=== PATIENT | female | born 2005 | race Asian ===

== ENCOUNTER 2025-01-02 17:12 | Emergency (ER) | payer OTHER, SELFPAY ==
[2025-01-02 17:13] VITALS: BP 104/73; PULSE 66; RESP 18; TEMP 36.5; O2SAT 100; BMI 22.7
--- NOTE | 2025-01-02 19:53 | EX.ED.DYSGE1 ---
HPI History of Present Illness Chief Complaint: Bite Detail of Chief Complaint: Bat bite near her right breast and left upper back Informant: patient Onset/Context/Timing Onset: Today and Yesterday Context: - (Not applicable) Timing: - (Not applicable) Quality: Awoke with bat outside of room and has bite medial upper quadrant Location: Right breast and left shoulder Current Severity: Mild Maximum Severity: Mild Worsened by: Not applicable Relieved by: Not applicable Associated Symptoms Associated Symptoms: None Narrative Narrative: Patient is a 19-year-old who awoke with a bat inside her room 2 days ago and today. She has a bite mich medial upper quadrant of right breast that occurred 2 days ago and has a bite mich left shoulder that occurred today she has no other symptoms. She is a college [employer] student. Apparently, the school is aware that there is bats in the dorm. Prior similar symptoms: No Recent Illness/Hospitalization: No PFSH PFSH Allergy/AdvReac Type Severity Reaction Status Date / Time No Known Allergies Allergy Verified 01/02/25 17:13 Social History (Updated 01/02/25 @ 19:[address] Andres Ibanez MD) household members: other Smoking Status: Never smoker ROS ROS ED Constitutional Constitutional ED: Denies chills, fever(s), subjective, sweats or weight loss Eyes Eyes: Denies blurry vision or change in vision ENT ENT ED: Denies sore throat Musculoskeletal Musculoskeletal: Denies arthralgias or myalgias Integumentary Denies rash Neurologic Neurologic: Denies paresthesias Hematologic/Lymphatic Hematologic/Lymphatic: Reports systems reviewed and no addt'l complaints, except as documented EXAM Physical Exam Const Vital Signs: 01/02/25 17:13 Temperature 97.7 F L Temperature Source Temporal Pulse Rate 66 Respiratory Rate 18 Blood Pressure 104/73 Blood Pressure Mean 83 Pulse Ox 100 Oxygen Delivery Method Room Air Positive well nourished and well developed General Appearance ED: well developed and NAD HEENT Reports moist mucous membranes HEENT Narrative: Head is atraumatic normocephalic. Eyes PERRL and EOMs intact bilaterally Neck no lymphadenopathy, supple and no JVD Chest Wall palpation of chest normal; Negative for inspection of chest normal Chest Narrative: Bite mich tail of the upper medial quadrant of the right breast and posterior upper left back Resp normal respiratory effort and clear to auscultation bilaterally Cardio regular rate and regular rhythm Extremity normal to inspection Neuro oriented x3 and CN's II-XII intact bilaterally Sensorium / Orientation: alert Psych mental status grossly normal Skin Skin Narrative: What appears to be a bat bite anterior and posterior chest wall as previously described MDM MDM MDM Narrative Medical decision making narrative: Patient will require rabies immunoglobulin and vaccine. Patient is present in the connell need to be moved to a room for me to inject the right breast and back. Procedures Other Procedures Procedure(s): Yashira Vargas of rabies immunoglobulin one half right breast the other half left shoulder region. Discharge Plan Triage Chief Complaint: Bite ED Provider: Andres Ibanez Dx/Rx/DC Orders Clinical Impression: Bat bite wound Instructions: Rabies Vaccine, ED Animal Bite (General) Primary Care Provider: Bryon Baez Referrals: Bryon Baez MD [Primary Care Provider] - As Needed Print Language: Luxembourgish Disposition Disposition: Home, Self Care
[2025-01-02] MEDS: Rabies Immune Globulin/PF 300 UNIT/ML, 5 ML VIAL 1320 UNIT IM (20:17)
[2025-01-02 20:40] VITALS: BP 100/70; PULSE 61; RESP 15; TEMP 36.5; O2SAT 100
== END 2025-01-02 20:41 | disposition home or self-care (01) ==
PROVIDERS: Emergency Provider Emergency Medicine; PCP Family Medicine; Visit Provider Emergency Medicine
DX: S21.252A Open bite of left back wall of thorax without penetration into thoracic cavity, initial encounter (principal); S21.051A Open bite of right breast, initial encounter; Z23 Encounter for immunization; X58.XXXA Exposure to other specified factors, initial encounter
CPT/HCPCS: 90675; 96361; 96372; 96374; 99282; 90375

== ENCOUNTER 2025-01-05 17:21 | Outpatient (CLI) | payer OTHER, SELFPAY ==
[2025-01-05 17:21] VITALS: BP 122/70; PULSE 83; RESP 16; TEMP 37; O2SAT 100; BMI 23.5
== END 2025-01-05 18:14 | disposition home or self-care (01) ==
PROVIDERS: PCP Family Medicine; Visit Provider Emergency Medicine
DX: Z23 Encounter for immunization (principal)
CPT/HCPCS: 90675; 96372

== ENCOUNTER 2025-01-09 12:16 | Outpatient (CLI) | payer OTHER, SELFPAY ==
[2025-01-09 12:17] VITALS: BP 104/69; PULSE 81; RESP 14; TEMP 36.6; O2SAT 98; BMI 23.3
[2025-01-09 12:43] VITALS: BP 101/78; PULSE 64; RESP 14; TEMP 36.6; O2SAT 100
--- OUTSIDE RECORDS SUMMARY | 2025-01-09 13:18 | XMS RPT_ITS | CCD ---
Author Organization [facility]ini[facility] Care Team Providers Care School Librarian Name Role Phone Shamar AVENDAÑO, Dr. Campos Emergency Provider Sasha AVENDAÑO, Dr. Slater Primary Care Provider Shamar AVENDAÑO, Dr. Campos Attending Provider Bryon Baez Primary Care Unavailable Andres Ibanez Attending Unavailable Bryon Baez Primary Care Unavailable Andres Ibanez Attending Unavailable Problems Problem Classification Problem Date Documented Da te Episodic/Chronic E Codes: Natural/environment (2 sources) Mammal bite wound; Translations: [Bitten by other mammals, initial encounter] 01-02-2025 Episodic Open wounds of head; neck; and trunk (1 source) Open bite of left back wall of thorax without penetration into thoracic cavity, initial encounter; Translations: [Open bite of left back wall of thorax without penetration into thoracic cavity, initial encounter] Onset: 01-05-2025 Episodic Results Test Name Value Interpretation Reference Range Facil ity Emergency Department Summary on 01-02-2025 Emergency Department Summary [facility] Medical Records Department [address] [place] [address] Emergency Department Summary 01/02/25 MR#: [id number] Acct: [id number] Name: SVETA RECIO Rep #: [id number] : 2005 19 From: Andres Ibanez MD PCP: Dr. Bryon Baez MD Status:REG ER Location: ED HPI History of Present Illness Chief Complaint: Bite Detail of Chief Complaint: Bat bite near her right breast and left upper back Informant: patient Onset/Context/Timing Onset: Today and Yesterday Context: - (Not applicable) Timing: - (Not applicable) Quality: Awoke with bat outside of room and has bite medial upper quadrant Location: Right breast and left shoulder Current Severity: Mild Maximum Severity: Mild Worsened by: Not applicable Relieved by: Not applicable Associated Symptoms Associated Symptoms: None Narrative Narrative: Patient is a 19-year-old who awoke with a bat inside her room 2 days ago and today. She has a bite mich medial upper quadrant of right breast that occurred 2 days ago and has a bite mich left shoulder that occurred today she has no other symptoms. She is a college [employer] student. Apparently, the school is aware that there is bats in the dorm. Prior similar symptoms: No Recent Illness/Hospitalizati on: No PFSH PFSH Allergy/AdvReac Type Severity Reaction Status Date / Time No Known Allergies Allergy Verified 01/02/25 17:13 Social History (Updated 01/02/25 @ 19:[address] Andres Ibanez MD) household members: other Smoking Status: Never smoker ROS ROS ED Constitutional Constitutional ED: Denies chills, fever(s), subjective, sweats or weight loss Eyes Eyes: Denies blurry vision or change in vision ENT ENT ED: Denies sore throat Musculoskeletal Musculoskeletal: Denies arthralgias or myalgias Integumentary Denies rash Neurologic Neurologic: Denies paresthesias Hematologic/Lymphatic Hematologic/Lymphatic : Reports systems reviewed and no addt'l complaints, except as documented EXAM Physical Exam Const Vital Signs: 01/02/25 17:13 Temperature 97.7 F L Temperature Source Temporal Pulse Rate 66 Respiratory Rate 18 Blood Pressure 104/73 Blood Pressure Mean 83 Pulse Ox 100 Oxygen Delivery Method Room Air Positive well nourished and well developed General Appearance ED: well developed and NAD HEENT Reports moist mucous membranes HEENT Narrative: Head is atraumatic normocephalic. Eyes PERRL and EOMs intact bilaterally Neck no lymphadenopathy, supple and no JVD Chest Wall palpation of chest normal; Negative for inspection of chest normal Chest Narrative: Bite mich tail of the upper medial quadrant of the right breast and posterior upper left back Resp normal respiratory effort and clear to auscultation bilaterally Cardio regular rate and regular rhythm Extremity normal to inspection Neuro oriented x3 and CN's II-XII intact bilaterally Sensorium / Orientation: alert Psych mental status grossly normal Skin Skin Narrative: What appears to be a bat bite anterior and posterior chest wall as previously described MDM MDM MDM Narrative Medical decision making narrative: Patient will require rabies immunoglobulin and vaccine. Patient is present in the connell need to be moved to a room for me to inject the right breast and back. Procedures Other Procedures Procedure(s): Yashira Sam of rabies immunoglobulin one half right breast the other half left shoulder region. Discharge Plan Triage Chief Complaint: Bite ED Provider: Andres Ibanez Dx/Rx/DC Orders Clinical Impression: Bat bite wound Instructions: Rabies Vaccine, ED Animal Bite (General) Primary Care Provider: Bryon Baez Referrals: Bryon Baez MD [Primary Care Provider] - As Needed Print Language: Sammarinese Disposition Disposition: Home, Self Care What to do if you have Problems For any increased pain, shortness of breath, bleeding, nausea or vomiting, chest pain, or any unexpected problems, contact your Primary Care Provider. Call [facility] ([phone]) or report to the closest Emergency Room. Call 911 if necessary. 01/02/252012 Cosigner Signature (if applicable): CC: Dr. Bryon Baez MD Signed Normal [facility] Vital Signs Date Time Vital Sign Value Performing Clinician Faci lity 01-05-2025 17:47-0400 Body weight 68.[address] Andres Ibanez MD Work Phone: [facility] 01-05-2025 17:21-0400 Body height 170.[address] Andres Ibanez MD Work Phone: [facility] 01-05-2025 17:21-0400 Body mass index (BMI) [Ratio] 23.5 kg/m2 Dr. Andres Ibanez MD Work Phone: [facility] 01-05-2025 17:21-0400 Body temperature 98.6 [degF] Dr. Andres Ibanez MD Work Phone: [facility] 01-05-2025 17:21-0400 Diastolic blood pressure 70 mm[Hg] Dr. Andres Ibanez MD Work Phone: [facility] 01-05-2025 17:21-0400 Heart rate 83 /min Dr. Andres Ibanez MD Work Phone: [facility] 01-05-2025 17:21-0400 Respiratory rate 16 /min Dr. Andres Ibanez MD Work Phone: 2(397)594-603245 [place] [address] 01-05-2025 17:21-0400 SaO2% (BldA) [Mass fraction] 100 % Dr. Andres Ibanez MD Work Phone: 9(551)884-969345 [place] [address] 01-05-2025 17:21-0400 Systolic blood pressure 122 mm[Hg] Dr. Andres Ibanez MD Work Phone: 6(942)527-881040 [place] [address] 01-02-2025 20:40-0400 Body temperature 97.7 [degF] Dr. Andres Ibanez MD Work Phone: 5(969)428-902740 [place] [address] 01-02-2025 20:40-0400 Diastolic blood pressure 70 mm[Hg] Dr. Andres Ibanez MD Work Phone: 9(808)148-593940 [place] [address] 01-02-2025 20:40-0400 Heart rate 61 /min Dr. Andres Ibanez MD Work Phone: 0(411)885-538540 [place] [address] 01-02-2025 20:40-0400 Respiratory rate 15 /min Dr. Andres Ibanez MD Work Phone: 9(053)342-881240 [place] [address] 01-02-2025 20:40-0400 SaO2% (BldA) [Mass fraction] 100 % Dr. Andres Ibanez MD Work Phone: 0(548)731-650940 [place] [address] 01-02-2025 20:40-0400 Systolic blood pressure 100 mm[Hg] Dr. Andres Ibanez MD Work Phone: 6(140)670-529840 [place] [address] 01-02-2025 17:13-0400 Body height 170.[address] Andres Ibanez MD Work Phone: 0(350)660-493740 [place] [address] 01-02-2025 17:13-0400 Body mass index (BMI) [Ratio] 22.7 kg/m2 Dr. Andres Ibanez MD Work Phone: 7(536)231-823240 [place] [address] 01-02-2025 17:13-0400 Body weight 65.[address] Andres Ibanez MD Work Phone: 1(755)888-686940 [place] [address] Encounters Encounter Date Encounter Type Care Provider Facility Start: 01-05-2025 End: 01-05-[address] Andres Ibanez MD -Emergency Department Work Phone: Start: 01-05-2025 End: 01-05-[address] Andres Ibanez MD Work Phone: -Emergency Department Start: 01-02-2025 End: 01-02-2025 Emergency department patient visit Dr. Andres Ibanez MD Work Phone: -Emergency Department Work Phone: Plan of Treatment Date Care Activity Detail Author Start: 01-02-2025 [facility] Patient Education Rabies Vaccine ED Animal Bite (General) [facility] Work Phone: Immunizations Immunization Date Immunization Notes Care Provider Fa cility 01-05-2025 rabies vaccine, for intramuscular injection Dr. Andres Ibanez MD Work Phone: [facility] 01-02-[address] Sabrina Ibanez MD Work Phone: [facility] 01-02-2025 rabies vaccine, for intramuscular injection Dr. Andres Ibanez MD Work Phone: [facility] Payers Date Payer Category Payer Self-pay 2025 Unknown [id number] Unknown [id number] Unknown [id number] Social History Date Type Detail Facility Start: 01-02-2025 Tobacco smoking stat us NHIS Never smoked tobacco (finding) [facility] Start: 2005 Sex Assigned At Female W [facility] Discharge summary 01-02-2025 Note Date & Type Note Facility 01-02-2025 Discharge summary [facility] Discharge summary 01-02-2025 Note Date & Type Note Facility 01-02-2025 Discharge summary Note Date/Time January 02, 2025 8:13pm [facility] Medical Records Department [address] [place] [address] Emergency Department Summary 01/02/25 MR#: [id number] Acct: [id number] Name: SVETA RECIO Rep #:[id number] : 2005 19 From: Andres Ibanez MD PCP: Dr. Bryon Baez MD Status :REG ER Location: ED HPI History of Present Illness Chief Complaint: Bite Detail of Chief Complaint: Bat bite near her right breast and left upper back Informant: patient Onset/Context/Timing Onset: Today and Yesterday Context: - (Not applicable) Timing: - (Not applicable) Quality: Awoke with bat outside of room and has bite medial upper quadrant Location: Right breast and left shoulder Current Severity: Mild Maximum Severity: Mild Worsened by: Not applicable Relieved by: Not applicable Associated Symptoms Associated Symptoms: None Narrative Narrative: Patient is a 19-year-old who awoke with a bat inside her room 2 days ago and today. She has a bite mich medial upper quadrant of right breast that occurred 2 days ago and has a bite mich left shoulder that occurred today she has no other symptoms. She is a [employer] student. Apparently, the school is aware that there isbats in the dorm. Prior similar symptoms: No Recent Illness/Hospitalization: No PFSH PFSH Allergy/AdvReac Type Severity Reaction Status Date / Time No Known Allergies Allergy Verified 01/02/25 17:13 Social History (Updated 01/02/25 @ 19:[address] Andres Ibanez MD) household members: other Smoking Status: Never smoker ROS ROS ED Constitutional Constitutional ED: Denies chills, fever(s), subjective, sweats or weight loss Eyes Eyes: Denies blurry vision or change in vision ENT ENT ED: Denies sore throat Musculoskeletal Musculoskeletal: Denies arthralgias or myalgias Integumentary Denies rash Neurologic Neurologic: Denies paresthesias Hematologic/Lymphatic Hematologic/Lymphatic: Reports systems reviewed and no addt'l complaints, exceptas documented EXAM Physical Exam Const Vital Signs: 01/02/25 17:13 Temperature 97.7 F L Temperature Source Temporal Pulse Rate 66 Respiratory Rate 18 Blood Pressure 104/73 Blood Pressure Mean 83 Pulse Ox 100 Oxygen Delivery Method Room Air Positive well nourished and well developed General Appearance ED: well developed and NAD HEENT Reports moist mucous membranes HEENT Narrative: Head is atraumatic normocephalic. Eyes PERRL and EOMs intact bilaterally Neck no lymphadenopathy, supple and no JVD Chest Wall palpation of chest normal; Negative for inspection of chest normal Chest Narrative: Bite mich tail of the upper medial quadrant of the right breast and posterior upper left back Resp normal respiratory effort and clear to auscultation bilaterally Cardio regular rate and regular rhythm Extremity normal to inspection Neuro oriented x3 and CN's II-XII intact bilaterally Sensorium / Orientation: alert Psych mental status grossly normal Skin Skin Narrative: What appears to be a bat bite anterior and posterior chest wall as previously described MDM MDM MDM Narrative Medical decision making narrative: Patient will require rabies immunoglobulin and vaccine. Patient is present in the connell need to be moved to a room for me to inject the right breast and back. Procedures Other Procedures Procedure(s): Yashira Vargas of rabies immunoglobulin one half right breast the other half left shoulder region. Discharge Plan Triage Chief Complaint: Bite ED Provider: Andres Ibanez Dx/Rx/DC Orders Clinical Impression: Bat bite wound Instructions: Rabies Vaccine, ED Animal Bite (General) Primary Care Provider: Bryon Baez Referrals: Bryon Baez MD [Primary Care Provider] - As Needed Print Language: Sammarinese Disposition Disposition: Home, Self Care What to do if you have Problems For any increased pain, shortness of breath, bleeding, nausea or vomiting, chestpain, or any unexpected problems, contact your Primary Care Provider. Call [facility] ([phone]) or report to the closest Emergency Room. Call 911 if necessary. 01/02/252012 <Electronically signed by Andres Ibanez MD> Cosigner Signature (if applicable): CC: Dr. Bryon Baez MD ~ Signed [facility] Work Phone: Evaluation note Note Date & Type Note Facility Evaluation note No assessment information availa ble [facility] Work Phone: Reason for referral (narrative) Note Date & Type Note Facility Reason for referral (narrative) No reason for referral information available [facility] Work Phone: Chief Complaint and Reason for Visit Chief Complaint Admit Date bat bite January 02, 2025 5:12pm Chief Complaint Admit Date bat bite January 02, 2025 5:12pm MEDS ONLY January 05, 2025 5:21pm Advance Directives No Advanced Directives Records Found Advance Directive Response Recorded Date/ Time Do you have a Healthcare Power of Market Master? No January 02, 2025 6:35pm Summary Purpose Family History No Family History Records Found Additional Source Comments Care Teams (unrecognized sec tion and content) Team Status: Active Member Role/Relationship Status Dates Dr. Bryon Baez MD Primary Care Provider Acti ve Team Status: Inactive Member Role/Relationship Status Dates Dr. Andres Ibanez MD Emergency Provider Active Sta rt: January 02, 2025 End: January 02, 2025 Dr. Bryon Baez MD Primary Care Provider Acti ve Start: January 02, 2025 End: January 02, 2025 Team Status: Inactive Member Role/Relationship Status Dates Dr. Andres Ibanez MD Attending Provider Active Sta rt: January 02, 2025 End: January 02, 2025 Dr. Andres Ibanez MD Emergency Provider Active Sta rt: January 02, 2025 End: January 02, 2025 Dr. Broyn Baez MD Primary Care Provider Acti ve Start: January 02, 2025 End: January 02, 2025 Team Status: Inactive Member Role/Relationship Status Dates Dr. Bryon Baez MD Primary Care Provider Acti ve Start: January 05, 2025 End: January 05, 2025 Dr. Andres Ibanez MD Attending Provider Active Sta rt: January 05, 2025 End: January 05, 2025 Goals (unrecognized section and content) Goals may be documented in a n alternate sectionGoals may be documented in an alternate section INFORMATION SOURCE (unrecogn ized section and content) DATE CREATED AUTHOR 01/06/2025 [facility] FOR RECORDS PERTAINING TO PATIENTS WHO ARE OR HAVE BEEN ENROLLED IN A CHEMICAL DEPENDENCY/SUBSTANCEABUSE PROGRAM, SOME INFORMATION MAY BE OMITTED. This clinical summary was aggregated from multiple sources. Caution should be exercised in using it in the provision of clinical care. This summary normalizes information from multiple sources, and as a consequence, information in this document may materially change the coding, format and clinical context of patient data. In addition, data may be omitted in some cases. CLINICAL DECISIONS SHOULD BE BASED ON THE PRIMARY CLINICAL RECORDS. [employer] [facility]. provides no warranty or guarantee of the accuracy or completeness of information in this document.
== END 2025-01-09 12:43 | disposition home or self-care (01) ==
PROVIDERS: PCP Family Medicine; Visit Provider Emergency Medicine
DX: Z23 Encounter for immunization (principal)
CPT/HCPCS: 90675; 96372

== ENCOUNTER 2025-01-16 17:33 | Outpatient (CLI) | payer OTHER, SELFPAY ==
[2025-01-16 17:34] VITALS: BP 103/73; PULSE 76; RESP 16; TEMP 36.7; O2SAT 100; BMI 23.5
--- OUTSIDE RECORDS SUMMARY | 2025-01-16 18:12 | XMS RPT_ITS | CCD ---
Author Organization [facility] Care Team Providers Care Manager Inventory Management Name Role Phone Shamar AVENDAÑO, Dr. Campos Emergency Provider Sasha AVENDAÑO, Dr. Slater Primary Care Provider Shamar AVENDAÑO, Dr. Campos Attending Provider [phone] Bryon Baez Primary Care Unavailable Andres Ibanez Attending Unavailable Bryon Baez Primary Care Unavailable Andres Ibanez Attending Unavailable Andres Ibanez Attending Unavailable Bryon Baez Primary Care Unavailable Problems Problem Classification Problem Date Documented Da te Episodic/Chronic E Codes: Natural/environment (2 sources) Mammal bite wound; Translations: [Bitten by other mammals, initial encounter] 01-02-2025 Episodic Immunizations and screening for infectious disease (1 source) Encounter for immunization; Translations: [Encounter for immunization] Onset: 01-12-2025 Episodic Open wounds of head; neck; and trunk (1 source) Open bite of left back wall of thorax without penetration into thoracic cavity, initial encounter; Translations: [Open bite of left back wall of thorax without penetration into thoracic cavity, initial encounter] Onset: 01-05-2025 Episodic Results Test Name Value Interpretation Reference Range Facil ity Emergency Department Summary on 01-02-2025 Emergency Department Summary [facility] Medical Records Department [address] [place] [address] Emergency Department Summary 01/02/25 MR#: [id number] Acct: [id number] Name: SVETA RECIO Rep #: [id number] : 2005 19 From: Andres Ibanez MD [...] no other symptoms. She is a college [employer] student. Apparently, the school is aware that [...] breast and back. Procedures Other Procedures Procedure(s): N. Sam of rabies immunoglobulin one half right breast the other half left shoulder region. Discharge Plan Triage Chief Complaint: Bite ED Provider: Adnres Ibanez Dx/Rx/DC Orders Clinical Impression: Bat bite wound Instructions: Rabies Vaccine, ED Animal Bite (General) Primary Care Provider: Bryon Baez Referrals: Bryon Baez MD [Primary Care Provider] - As Needed Print Language: Jordanian Disposition Disposition: Home, Self Care What to do if you have Problems For any increased pain, shortness of breath, bleeding, nausea or vomiting, chest pain, or any unexpected problems, contact your Primary Care Provider. Call [facility] ([phone]) or report to the closest Emergency Room. Call 911 if necessary. 01/02/252012 Cosigner Signature (if applicable): CC: Dr. Bryon Baez MD Signed Normal [facility] Vital Signs Date Time Vital Sign Value Performing Clinician Balbiri kathryn 01-05-2025 17:47-0400 Body weight 68.[address] Andres Ibanez MD Work Phone: [facility] 01-05-2025 17:21-0400 Body height 170.[address] Andres Ibanez MD Work Phone: [facility] 01-05-2025 17:21-0400 Body mass index (BMI) [Ratio] 23.5 kg/m2 Dr. Andres Ibanez MD Work Phone: [facility] 01-05-2025 17:21-0400 Body temperature 98.6 [degF] Dr. Andres Ibanez MD Work Phone: [facility] 01-05-2025 17:21-0400 Diastolic blood pressure 70 mm[Hg] Dr. Andres Ibanez MD Work Phone: 8(048)491-754797 [place] [address] 01-05-2025 17:21-0400 Heart rate 83 /min Dr. Andres Ibanez MD Work Phone: 0(018)102-123697 [place] [address] 01-05-2025 17:21-0400 Respiratory rate 16 /min Dr. Andres Ibanez MD Work Phone: 8(088)512-127797 [place] [address] 01-05-2025 17:21-0400 SaO2% (BldA) [Mass fraction] 100 % Dr. Andres Ibanez MD Work Phone: 6(990)167-605597 [place] [address] 01-05-2025 17:21-0400 Systolic blood pressure 122 mm[Hg] Dr. Andres Ibanez MD Work Phone: 2(202)021-702597 [place] [address] 01-02-2025 20:40-0400 Body temperature 97.7 [degF] Dr. Andres Ibanez MD Work Phone: 3(769)595-762597 [place] [address] 01-02-2025 20:40-0400 Diastolic blood pressure 70 mm[Hg] Dr. Andres Ibanez MD Work Phone: 0(611)118-912997 [place] [address] 01-02-2025 20:40-0400 Heart rate 61 /min Dr. Andres Ibanez MD Work Phone: 2(042)196-696797 [place] [address] 01-02-2025 20:40-0400 Respiratory rate 15 /min Dr. Andres Ibanez MD Work Phone: 6(188)207-773297 [place] [address] 01-02-2025 20:40-0400 SaO2% (BldA) [Mass fraction] 100 % Dr. Andres Ibanez MD Work Phone: 8(534)395-293097 [place] [address] 01-02-2025 20:40-0400 Systolic blood pressure 100 mm[Hg] Dr. Andres Ibanez MD Work Phone: 8(474)932-986297 [place] [address] 01-02-2025 17:13-0400 Body height 170.[address] Andres Ibanez MD Work Phone: 8(291)885-753197 [place] [address] 01-02-2025 17:13-0400 Body mass index (BMI) [Ratio] 22.7 kg/m2 Dr. Andres Ibanez MD Work Phone: [facility] 01-02-2025 17:13-0400 Body weight 65.[address] Andres Ibanez MD Work Phone: [facility] Encounters Encounter Date Encounter Type Care Provider Facility Start: 01-09-2025 End: 01-09-2025 ambulatory Andres Ibanez Facility:[facility] Start: 01-05-2025 End: 01-05-[address] Andres Ibanez MD -Emergency Department Work Phone: Start: 01-05-2025 End: 01-05-[address] Andres Ibanez MD Work Phone: -Emergency Department Start: 01-02-2025 End: 01-02-2025 Emergency department patient visit Dr. Andres Ibanez MD Work Phone: -Emergency Department Work Phone: Plan of Treatment Date Care Activity Detail Author Start: 01-02-2025 [facility] Patient Education Rabies Vaccine ED Animal Bite (General) [facility] Work Phone: Immunizations Immunization Date Immunization Notes Care Provider Fa cility 01-05-2025 rabies vaccine, for intramuscular injection Dr. Andres Ibanez MD Work Phone: [facility] 01-02-[address] Sabrina Ibanez MD Work Phone: [facility] 01-02-2025 rabies vaccine, for intramuscular injection Dr. Andres Ibanez MD Work Phone: [facility] Payers Date Payer Category Payer Self-pay 2025 Unknown [id number] Unknown [id number] .. [id number] Unknown [id number] Unknown [id number] .. [id number] Social History Date Type Detail Facility Start: 01-02-2025 Tobacco smoking stat us NHIS Never smoked tobacco (finding) [facility] Start: 2005 Sex Assigned At Female [facility] Discharge summary 01-02-2025 Note Date & Type Note Facility 01-02-2025 Discharge summary [facility] Discharge summary 01-02-2025 Note Date & Type Note Facility 01-02-2025 Discharge summary Note Date/Time January 02, 2025 8:13pm [facility] Medical Records Department [address] [place] [address] Emergency Department Summary 01/02/25 MR#: [id number] Acct: [id number] Name: SVETA RECIO Rep #:[id number] : 2005 19 From: Andres Ibanez MD [...] no other symptoms. She is a college [employer] student. Apparently, the school is aware that [...] Care Provider] - As Needed Print Language: Jordanian Disposition Disposition: Home, Self Care What to do if you have Problems For any increased pain, shortness of breath, bleeding, nausea or vomiting, chestpain, or any unexpected problems, contact your Primary Care Provider. Call [facility] ([phone]) or report to the closest Emergency Room. Call 911 if necessary. 01/02/252012 <Electronically signed by Andres Ibanez MD> Cosigner Signature (if applicable): CC: Dr. Bryon Baez MD ~ Signed [facility] Work Phone: Evaluation note Note Date & Type Note Facility Evaluation note No assessment information availa ble [facility] Work Phone: Reason for referral (narrative) Note Date & Type Note Facility Reason for referral (narrative) No reason for referral information available [facility] Work Phone: Chief Complaint and Reason for Visit Chief Complaint Admit Date bat bite January 02, 2025 5:12pm Chief Complaint Admit Date bat bite January 02, 2025 5:12pm MEDS ONLY January 05, 2025 5:21pm Advance Directives No Advanced Directives Records Found Advance Directive Response Recorded Date/ Time Do you have a Healthcare Power of Family Law Legal Assistant? No January 02, 2025 6:35pm Summary Purpose [...] ized section and content) DATE CREATED AUTHOR 01/13/2025 [facility] FOR RECORDS PERTAINING TO PATIENTS WHO ARE [...] BE BASED ON THE PRIMARY CLINICAL RECORDS. [facility]. provides no warranty or guarantee of the accuracy or completeness of information in this document.
[2025-01-16 18:13] VITALS: BP 103/73; PULSE 76; RESP 16; TEMP 36.7; O2SAT 100
--- OUTSIDE RECORDS SUMMARY | 2025-01-16 19:15 | XMS RPT_ITS | CCD ---
Author Organization [facility] Care Team Providers Care Body Component Engineer Name Role Phone Shamar AVENDAÑO, Dr. Campos Emergency Provider Sasha AVENDAÑO, Dr. Slater Primary Care Provider Shamar AVENDAÑO, Dr. Campos Attending Provider [phone] Bryon Baez Primary Care Unavailable Andres Ibanez [...] Center Medical Records Department [address] [place] [address] Emergency Department Summary 01/02/25 MR#: [id number] Acct: [id number] Name: SVETA RECIO Rep #: [id number] : 2005 19 From: Andres Ibanez MD [...] no other symptoms. She is a college [employer] student. Apparently, the school is aware that [...] Care Provider] - As Needed Print Language: Martiniquais Disposition Disposition: Home, Self Care What to do if you have Problems For any increased pain, shortness of breath, bleeding, nausea or vomiting, chest pain, or any unexpected problems, contact your Primary Care Provider. Call [facility] ([phone]) or report to the closest Emergency Room. Call 911 if necessary. 01/02/252012 Cosigner Signature (if applicable): CC: Dr. Bryon Baez MD Signed Normal [facility] Vital Signs Date Time Vital Sign Value Performing Clinician Balbiri kathryn 01-05-2025 17:47-0400 Body weight 68.[address] Andres Ibanez MD Work Phone: [facility] 01-05-2025 17:21-0400 Body height 170.[address] Andres Ibanez MD Work Phone: [facility] 01-05-2025 17:21-0400 Body mass index (BMI) [Ratio] 23.5 kg/m2 Dr. Andres Ibanez MD Work Phone: [facility] 01-05-2025 17:21-0400 Body temperature 98.6 [degF] Dr. Andres Ibanez MD Work Phone: [facility] 01-05-2025 17:21-0400 Diastolic blood pressure 70 mm[Hg] Dr. Andres Ibanez MD Work Phone: 0(481)325-071320 [place] [address] 01-05-2025 17:21-0400 Heart rate 83 /min Dr. Andres Ibanez MD Work Phone: 2(008)535-491420 [place] [address] 01-05-2025 17:21-0400 Respiratory rate 16 /min Dr. Andres Ibanez MD Work Phone: 4(050)246-191020 [place] [address] 01-05-2025 17:21-0400 SaO2% (BldA) [Mass fraction] 100 % Dr. Andres Ibanez MD Work Phone: 2(970)769-549220 [place] [address] 01-05-2025 17:21-0400 Systolic blood pressure 122 mm[Hg] Dr. Andres Ibanez MD Work Phone: 8(805)457-744220 [place] [address] 01-02-2025 20:40-0400 Body temperature 97.7 [degF] Dr. Andres Ibanez MD Work Phone: 6(827)867-915420 [place] [address] 01-02-2025 20:40-0400 Diastolic blood pressure 70 mm[Hg] Dr. Andres Ibanez MD Work Phone: 2(797)954-634120 [place] [address] 01-02-2025 20:40-0400 Heart rate 61 /min Dr. Andres Ibanez MD Work Phone: 0(461)647-286520 [place] [address] 01-02-2025 20:40-0400 Respiratory rate 15 /min Dr. Andres Ibanez MD Work Phone: 6(167)946-176520 [place] [address] 01-02-2025 20:40-0400 SaO2% (BldA) [Mass fraction] 100 % Dr. Andres Ibanez MD Work Phone: 4(873)608-278320 [place] [address] 01-02-2025 20:40-0400 Systolic blood pressure 100 mm[Hg] Dr. Andres Ibanez MD Work Phone: 4(605)596-797420 [place] [address] 01-02-2025 17:13-0400 Body height 170.[address] Andres Ibanez MD Work Phone: 3(989)945-731120 [place] [address] 01-02-2025 17:13-0400 Body mass index (BMI) [Ratio] 22.7 kg/m2 Dr. Andres Ibanez MD Work Phone: [facility] 01-02-2025 17:13-0400 Body weight 65.[address] Andres Ibanez MD Work Phone: [facility] Encounters Encounter Date Encounter Type Care Provider Facility Start: 01-09-2025 End: 01-09-2025 ambulatory Andres Ibanez Facility:[facility] Start: 01-05-2025 End: 01-05-[address] Andres Ibanez MD -Emergency Department Work Phone: Start: 01-05-2025 End: 01-05-[address] Andres Ibanez MD Work Phone: -Emergency Department Start: 01-02-2025 End: 01-02-2025 Emergency department patient visit Dr. Andres Ibanez MD Work Phone: -Emergency Department Work Phone: Plan of Treatment Date Care Activity Detail Author Start: 01-02-2025 [facility] Patient Education Rabies Vaccine ED Animal Bite (General) [facility] Work Phone: Immunizations Immunization Date Immunization Notes Care Provider Fa cility 01-05-2025 rabies vaccine, for intramuscular injection Dr. Andres Ibanez MD Work Phone: [facility] 01-02-[address] Sabrina Ibanez MD Work Phone: [facility] 01-02-2025 rabies vaccine, for intramuscular injection Dr. Andres Ibanez MD Work Phone: [facility] Payers Date Payer Category Payer Self-pay 2025 Unknown [id number] Unknown [id number] .. [id number] Unknown [id number] Unknown [id number] .. [id number] Social History Date Type Detail Facility Start: 01-02-2025 Tobacco smoking stat us NHIS Never smoked tobacco (finding) [facility] Start: 2005 Sex Assigned At Female W [facility] Discharge summary 01-02-2025 Note Date & Type Note Facility 01-02-2025 Discharge summary [facility] Discharge summary 01-02-2025 Note Date & Type Note Facility 01-02-2025 Discharge summary Note Date/Time January 02, 2025 8:13pm [facility] Medical Records Department [address] [place] [address] Emergency Department Summary 01/02/25 MR#: [id number] Acct: [id number] Name: SVETA RECIO Rep #:[id number] : 2005 19 From: Andres Ibanez MD [...] no other symptoms. She is a college [employer] student. Apparently, the school is aware that [...] Care Provider] - As Needed Print Language: Martiniquais Disposition Disposition: Home, Self Care What to do if you have Problems For any increased pain, shortness of breath, bleeding, nausea or vomiting, chestpain, or any unexpected problems, contact your Primary Care Provider. Call [facility] ([phone]) or report to the closest Emergency Room. Call 911 if necessary. 01/02/252012 <Electronically signed by Andres Ibanez MD> Cosigner Signature (if applicable): CC: Dr. Bryon Baez MD ~ Signed [facility] Work Phone: Evaluation note Note Date & Type Note Facility Evaluation note No assessment information availa ble [facility] Work Phone: Reason for referral (narrative) Note Date & Type Note Facility Reason for referral (narrative) No reason for referral information available [facility] Work Phone: Chief Complaint and Reason for Visit Chief Complaint Admit Date bat bite January 02, 2025 5:12pm Chief Complaint Admit Date bat bite January 02, 2025 5:12pm MEDS ONLY January 05, 2025 5:21pm Advance Directives No Advanced Directives Records Found Advance Directive Response Recorded Date/ Time Do you have a Healthcare Power of Nipple Maker? No January 02, 2025 6:35pm Summary Purpose [...] 05, 2025 End: January 05, 2025 Dr. nAdres Ibanez MD Attending Provider Active Sta rt: January 05, 2025 End: January 05, 2025 Goals (unrecognized section and content) Goals may be documented in a n alternate sectionGoals may be documented in an alternate section INFORMATION SOURCE (unrecogn ized section and content) DATE CREATED AUTHOR 01/13/2025 [facility] FOR RECORDS PERTAINING TO PATIENTS WHO ARE [...] BE BASED ON THE PRIMARY CLINICAL RECORDS. [facility]. provides no warranty or guarantee of the accuracy or completeness of information in this document.
== END 2025-01-16 18:15 | disposition home or self-care (01) ==
PROVIDERS: PCP Family Medicine; Visit Provider Emergency Medicine
DX: S20.161A Insect bite (nonvenomous) of breast, right breast, initial encounter (principal); S40.262A Insect bite (nonvenomous) of left shoulder, initial encounter; W57.XXXA Bitten or stung by nonvenomous insect and other nonvenomous arthropods, initial encounter; Y92.214 College as the place of occurrence of the external cause; Z23 Encounter for immunization
CPT/HCPCS: 90675; 96372